=== PATIENT | female | born 1965 | race Caucasian/White ===

== ENCOUNTER 2017-03-24 10:53 | Outpatient (CLI) | payer OTHER ==
--- NOTE | 2017-03-24 11:30 | MMO ---
BILATERAL SCREENING MAMMOGRAMS: Date: 03/24/17 Prior exam from Jaiden Zamora\ Flip in 2003 is not available. This is a baseline study for this [facility]. This patient's mammogram was interpreted with the assistance of computer-aided detection. FINDINGS: Heterogeneously dense glandular pattern. There are benign-appearing calcifications. No mass or disto rtion identified. Recommend one year follow-up. IMPRESSION: BIRADS 2: Benign Finding(s) POS: CHASID[facility]
== END 2017-03-24 10:54 | disposition home or self-care (01) ==
LOC: MAMMO 10:53
PROVIDERS: ATTEND Family Medicine
DX: Z12.31 Encounter for screening mammogram for malignant neoplasm of breast (principal)
CPT/HCPCS: 77067; G0202